=== PATIENT | female | born 1955 | race Two or more races ===

== ENCOUNTER 2018-02-25 12:03 | Emergency (ER) | payer MEDICARE ==
[2018-02-25] MEDS: KETOROLAC 60 MG/2 ML INJ. IM (13:26)
== END 2018-02-25 14:57 | disposition home or self-care (01) ==
LOC: ER 12:03
DX: M25.512 Pain in left shoulder (principal); X50.9XXA Other and unspecified overexertion or strenuous movements or postures, initial encounter; Y93.89 Activity, other specified; Y99.0 Civilian activity done for income or pay; Y92.69 Other specified industrial and construction area as the place of occurrence of the external cause
CPT/HCPCS: 73030; 96372; 99284-25; J1885